=== PATIENT | male | born 1960 | race Caucasian/White ===

== ENCOUNTER 2017-09-27 12:20 | Observation (INO) | payer OTHER ==
[~2017-09-27] VITALS: Ht 180.3 cm; Wt 101.7 kg
[~2017-09-27 12:20] MED LIST: CLAR10CA3 PO; CLOM50CA PO; DEXTROSE 50% IN WATER 50 ML VIAL(D50) IV PUSH PRN; GLUCAGON 1 MG/ML VIAL OTHER PRN; OMEGCAP PO; SODIUM CHLORIDE 0.9% FLUSH 10 ML FLUSH IV FLUSH PRN; VITA1000 PO; [UNRECOGNIZED DRUG - OTHER] PO
[2017-09-27 14:00] VITALS: BP 149/96; PULSE 80; RESP 12; TEMP 97.9; O2SAT 96
--- NOTE | 2017-09-27 14:07 | HHI.HP ---
HPI Service [facility] Primary Care Physician Non-Staff Admission Diagnosis Diagnoses: Chief Complaint: Initiate, confusion. Travel History International Travel<30 Days: No Contact w/Intl Traveler <30 Da: No Traveled to Known Affected Are: No History of Present Illness Mr. Shah is a 57-year-old male with a history of migraine headache who presents to the emergency department in [place], [place] due to amnesia and confusion this morning. He woke up around 6 AM and had breakfast. Due to headache he came back to bed to sleep. At around 7:00 AM he went to the bathroom. Patient's not to the bathroom door to get some stuff from the bathroom. Minutes after he got out of the bathroom patient came back to his and stated "I don't know this house". He was somewhat agitated and upset and confused. He could not recall what the room next to their bedroom was. They have been living in the house for 11 years. He could not recognize the room where his daughter stayed before she got . 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 With this confusion and agitation he started crying. Per patient's he did not have any facial asymmetry, speech difficulty, focal weakness. At the time of this interview, patient appears to be at his baseline. He simply states that he does not recall what happened. He denies any changes in bowel or bladder habits. Denies any chest pain, shortness of breath, fever or chills. Review of Systems Except as stated in HPI: all other systems reviewed are Neg Past Family Social History Past Medical History Migraine headache Seasonal allergy Fatigue Colon cancer Past Surgical History Right-sided colon resection due to colon cancer Knee arthroscopy Cholecystectomy Tracheal surgery when he was a child Reported Medications Claritin Clomiphene Allergies: Coded Allergies: Sulfa (Sulfonamide Antibiotics) (Verified Allergy, Unknown, 09/27/17) Family History Mother - Breast cancer, Uterine cancer. Father - lung cancer Social History Patient denies using tobacco, alcohol, illicit drugs. Physical Exam Vital Signs Temperature 99.1F pulse 89 respiration 18 blood pressure 159/85 pulse oximetry 96% on room air. Physical Exam GENERAL: This is a well-nourished, well-developed patient, in no apparent distress. SKIN: No rashes, ecchymoses or lesions. Warm and dry. HEAD: Atraumatic. Normocephalic. No temporal or scalp tenderness. EYES: Pupils equal round and reactive. No injection or drainage. ENT: Nose without bleeding, purulent drainage or septal hematoma. Airway patent. NECK: Trachea midline. No lymphadenopathy. Supple, nontender, no meningeal signs. CARDIOVASCULAR: Regular rate and rhythm without murmurs, gallops, or rubs. No JVD. RESPIRATORY: Clear to auscultation. Breath sounds equal bilaterally. No wheezes , rales, or rhonchi. GASTROINTESTINAL: Abdomen soft, non-tender, nondistended. No guarding. MUSCULOSKELETAL: Extremities without clubbing, cyanosis, or edema. NEUROLOGICAL: Awake and alert. Cranial nerves II through XII intact. No focal neurological deficits. Normal speech. Laboratory WBC 7.0 hemoglobin 17.2 hematocrit 50.2 platelets 195 Sodium 141, potassium 4.0, chloride 111, carbon dioxide 23, BUN 17, creatinine 1.2, random glucose 136 Imaging Chest x-ray no acute disease Head CT normal examination Caprini VTE Risk Assessment Caprini VTE Risk Assessment: No/Low Risk (score <= 1) Caprini Risk Assessment Model Point Value = 1 Point Value = 2 Point Value = 3 Point Value = 5 Age 41-60 Minor surgery BMI > 25 kg/m2 Swollen legs Varicose veins or History of unexplained or recurrent spontaneous Oral contraceptives or hormone replacement Sepsis (< 1 month) Serious lung disease, including pneumonia (< 1 month) Abnormal pulmonary function Acute myocardial infarction Congestive heart failure (< 1 month) History of inflammatory bowel disease Medical patient at bed rest Age 61-74 Arthroscopic surgery Major open surgery (> 45 min) Laparoscopic surgery (> 45 min) Malignancy Confined to bed (> 72 hours) Immobilizing plaster cast Central venous access Age >= 75 History of VTE Family history of VTE Factor V Leiden Prothrombin [id number] Lupus anticoagulant Anticardiolipin antibodies Elevated serum homocysteine Heparin-induced thrombocytopenia Other congenital or acquired thrombophilia Stroke (< 1 month) Elective arthroplasty Hip, pelvis, or leg fracture Acute spinal cord injury (< 1 month) Prophylaxis Regimen Total Risk Factor Score Risk Level Prophylaxis Regimen 0-1 Low Early ambulation 2 Moderate Order ONE of the following: *Sequential Compression Device (SCD) *Heparin 5000 units SQ BID 3-4 Higher Order ONE of the following medications: *Heparin 5000 units SQ TID *Enoxaparin/Lovenox 40 mg SQ daily (WT < 150 kg, CrCl > 30 mL/min) *Enoxaparin/Lovenox 30 mg SQ daily (WT < 150 kg, CrCl > 10-29 mL/min) *Enoxaparin/Lovenox 30 mg SQ BID (WT < 150 kg, CrCl > 30 mL/min) AND/OR *Sequential Compression Device (SCD) 5 or more Highest Order ONE of the following medications: *Heparin 5000 units SQ TID (Preferred with Epidurals) *Enoxaparin/Lovenox 40 mg SQ daily (WT < 150 kg, CrCl > 30 mL/min) *Enoxaparin/Lovenox 30 mg SQ daily (WT < 150 kg, CrCl > 10-29 mL/min) *Enoxaparin/Lovenox 30 mg SQ BID (WT < 150 kg, CrCl > 30 mL/min) AND *Sequential Compression Device (SCD) Assessment and Plan Problem List: (1) Transient global amnesia ICD Code: G45.4 - Transient global amnesia (2) Erythrocytosis ICD Code: D75.1 - Secondary polycythemia (3) Migraine headache ICD Code: G43.909 - Migraine, unspecified, not intractable, without status migrainosus Assessment and Plan Mr. Littlejohn is a 57-year-old male with a history of migraine headache who presented to the emergency department due to confusion and amnesia this morning. He did not have any focal neurological deficits. - Transient global amnesia - Etiology unknown. However migraine headache and erythrocytosis could be contributing factors. - Symptoms currently resolved. - CT scan of the head was unremarkable. Chest x-ray was unremarkable. - We'll obtain MRI brain and MRA, carotid ultrasound. - Neurology consult pending. - Migraine headache - Patient reports no relief of symptoms on Imitrex, Topamax - He usually takes Fioricet when necessary - Start patient on Fioricet every 8 hours as needed. - If agreed by neurology we can probably put patient on propranolol 20 mg twice a day for migraine prophylaxis - Erythrocytosis Hgb 17.2, Hct 50.2. - Patient is on Clomiphene for low testosterone - Prior to starting this medication his hemoglobin was 16. - I have advised patient to get a hematology evaluation in the outpatient setting. - KENIA-2 mutation could be ordered in the outpatient setting to rule out polycythemia vera Full code. Ambulation. Lurdes Bowie DO Sep 27, 2017 2:07 pm
[2017-09-27] MEDS ORDERED: LORazepam 2 MG/ML VIAL IM ONE (14:15)
[2017-09-27] MEDS ORDERED: LORazepam 2 MG/ML VIAL IV PUSH ONE (14:30)
[2017-09-27] MEDS ORDERED: ACETAMIN 325 MG/BUTALBITAL 50 MG/CAFFEINE 40 MG TAB PO PRN (14:45)
[2017-09-27 16:00] VITALS: BP 153/96; PULSE 82; RESP 12; TEMP 97.1; O2SAT 95
[2017-09-27] MEDS ORDERED: NAPROXEN 375 MG TAB PO PRN (16:15)
--- NOTE | 2017-09-27 16:17 | RADRPT ---
EXAM DATE/TIME: 09/27/2017 14:40 [facility] COMPARISON: No previous studies available for comparison. INDICATIONS : Cephalgia. TIA. Episode of memory loss. MEDICAL HISTORY : None. SURGICAL HISTORY : Appendectomy. Cholecystectomy. Bilateral knee surgery. ENCOUNTER: Subsequent ACUITY: 1 day PAIN SCORE: 3/10 LOCATION: head. TECHNIQUE: Multiplanar, multisequence MRI of the brain was performed without contrast. FINDINGS: There is no restricted diffusion evident Minimal white matter changes are evident. There is no parenchymal hemorrhage, acute infarction or mass lesion Regarding the white matter changes are in the proximal regions bilaterally. There is no parenchymal hemorrhage Posterior fossa is unremarkable. CONCLUSION: Periventricular white matter changes, confined and more towards the parietal occipita l regions bilaterally Negative for acute infarct. Brandan Shen MD FACR on September 27, 2017 at 16:13 Board Certified Radiologist. This report was verified electronically.
--- NOTE | 2017-09-27 16:17 | RADRPT ---
EXAM DATE/TIME: 09/27/2017 14:40 [facility] COMPARISON: No previous studies available for comparison. INDICATIONS : Cephalgia. TIA. Episode of memory loss. MEDICAL HISTORY : None. SURGICAL HISTORY : Appendectomy. Cholecystectomy. Bilateral knee surgery. ENCOUNTER: Subsequent ACUITY: 1 day PAIN SCORE: 3/10 LOCATION: head. Please note a normal MRA of the brain does not entirely exclude the possibility of a small aneurysm, nor the possibility of distal intracranial vessel disease. TECHNIQUE: 3D time of flight MRA was performed. Source images, multiplanar STS MIP, and 3D volume MIP reconstru ctions were reviewed. FINDINGS: There is excellent visualization of the major intracranial arteries out to the second-order branch ve ssels. There is no evidence for aneurysm, vessel truncation or stenosis, and no evidence for vascula r malformation. CONCLUSION: Negative for major branch vessel occlusion. As artery is widely patent. Both vertebral arteries are patent. Brandan Shen MD FACR on September 27, 2017 at 16:15 Board Certified Radiologist. This report was verified electronically.
--- NOTE | 2017-09-27 16:30 | RADRPT ---
EXAM DATE/TIME: 09/27/2017 14:04 [facility] COMPARISON: No previous studies available for comparison. INDICATIONS : Transient ischemic attack. MEDICAL HISTORY : Transient ischemic attack. SURGICAL HISTORY : Appendectomy. Cholecystectomy. Bilateral knee surgery. ENCOUNTER: Initial ACUITY: 1 day PAIN SCORE: 0/10 LOCATION: Bilateral neck PEAK SYSTOLIC VELOCITIES (cm/sec): ICA/CCA RATIO: Right: 1.1 Left: 0.9 ICA: Right: 76 Left: 80 CCA: Right: 76 Left: 80 ECA: Right: 78 Left: 76 VERTEBRAL: Right: 53 antegrade Left: 51 antegrade Elevated flow velocities and ICA/CCA ratios have been found to correlate with increased degrees of vessel stenosis, calculated as percentage of diameter relative to a normal segment of distal ICA/CCA FINDINGS: RIGHT CAROTID: There is no evidence for a hemodynamically significant carotid stenosis. Minimal int imal hyperplasia is present with scattered calcific plaque. LEFT CAROTID: There is no evidence for a hemodynamically significant carotid stenosis. Minimal inti mal hyperplasia is present with scattered calcific plaque. VERTEBRAL ARTERIES: Flow is antegrade in both vertebral arteries. MISCELLANEOUS: There are no ancillary masses or adenopathy. CONCLUSION: Negative examination for a hemodynamically significant carotid stenosis. Brandan Shen MD FACR on September 27, 2017 at 16:27 Board Certified Radiologist. This report was verified electronically.
[2017-09-27 16:47] VITALS: PULSE 81
[2017-09-27 20:00] VITALS: BP 129/71; PULSE 98; RESP 20; TEMP 98.6; O2SAT 93
[2017-09-27] MEDS: PROPRANOLOL HCL 20 MG TAB PO SCH (20:40)
[2017-09-27] MEDS: SODIUM CHLORIDE 0.9% FLUSH 10 ML FLUSH IV FLUSH SCH (20:41)
[2017-09-27 23:00] VITALS: PULSE 61
[2017-09-28] VITALS: BP 113/70; PULSE 63; RESP 20; TEMP 97.8; O2SAT 93
[2017-09-28 04:00] VITALS: BP 129/70; PULSE 68; RESP 20; TEMP 97.3; O2SAT 96
[2017-09-28 07:00] VITALS: PULSE 79
[2017-09-28 08:00] VITALS: BP 138/85; PULSE 64; RESP 16; TEMP 97; O2SAT 96
--- NOTE | 2017-09-28 08:46 | MB ---
cc: ASUNCION PAYNE DATE OF CONSULTATION 09/27/2017 REASON FOR CONSULTATION Amnesia. Stroke versus TIA. HISTORY OF PRESENT ILLNESS Mr. Littlejohn is a 57-year-old male with past medical history of migraine headache who follows up with Dr. Atkinson outside neurologist at [place]. He presented to the [facility] with complaint of confusion and inability to remember events that happened this morning while at home with his . He woke up early in morning, had breakfast. He has had headache, then went to the bathroom. The patient's noticed that he said that he does not know his house. He was somehow agitated and upset. She clearly states that they have been living in the house for 11 years and he could not recognize the rooms in the house. The patient's and his children are at the bedside. Denied similar episode in the past. No recent change of medications or any medication added to his medication list. Denies drugs or alcohol. The patient states that he is under a lot of work stresses. He denies headache, double vision, blurred vision, speech difficulty, weakness, loss of consciousness during the encounter. The patient seems to be back to his baseline. However, the states that he is not as sharp as he is normally. The patient has been treated with Imitrex that did not help with his migraine. REVIEW OF SYSTEMS A 12-point review of systems is negative except for what is stated in the HPI. PAST MEDICAL HISTORY 1. Migraine headache. 2. Allergies. 3. Fatigue. 4. Colon cancer. PAST SURGICAL HISTORY 1. Right-sided colon resection due to colon cancer. 2. Knee arthroscopy. 3. Cholecystectomy. 4. Tracheal surgery when he was a child. MEDICATIONS 1. Claritin. 2. Clomiphene used for low testosterone levels. ALLERGIES SULFA. FAMILY HISTORY Mother with breast cancer, passed. Father from lung cancer. Son with stroke. They are not certain whether it is a venous or arterial stroke. SOCIAL HISTORY The patient denies using tobacco, alcohol or illicit drugs. PHYSICAL EXAMINATION GENERAL: Awake, alert, good historian, anxious, not in acute distress HEENT: Atraumatic, normocephalic. Intact hearing. Intact vision. NECK: Supple. No signs of meningeal irritation. No carotid bruit. CARDIOVASCULAR: Regular rate and rhythm. RESPIRATORY: Clear to auscultation. No wheezes. GASTROINTESTINAL: Soft abdomen. Nontender. MUSCULOSKELETAL: No cyanosis, clubbing or edema. NEUROLOGIC: Awake, alert, oriented to time, person and place. No dysarthria, no dysphagia. Cranial nerves II-XII are grossly intact. Motor and sensory exams are normal. 5/5 bilateral and symmetrical muscle strength in upper and lower extremity. Normal tone. No abnormal movement. Intact sensation to light touch, temperature throughout. Reflexes 2+ bilateral and symmetrical. Plantars are bilaterally downgoing. Mtreto-sm-xmyw is intact. PSYCHIATRY: Anxious, cooperative. Intact mood and behavior. LABORATORY DATA White blood cells 7, hemoglobin 17.2, hematocrit 50.2, platelets 195. Sodium 141 , potassium 4, chloride 111, BUN 17, creatinine 1.2, random glucose 136. IMAGING STUDIES - Brain MRI revealed periventricular white matter changes, confined and more towards the parietal occipital regions bilaterally. Negative for an acute infarct. - Carotid ultrasound - Negative examination for hemodynamically significant stenosis. - Head MRA - Negative for major branch vessel occlusion. Both vertebral arteries are patent. DIAGNOSTIC IMPRESSION - Chronic migraine headache. - TGA (transient global amnesia). PLAN 1. Neurologic exam is nonfocal. Neurologic investigation with no acute neurologic abnormality. 1. Migraine prevention. Start propranolol 10 mg twice daily. 2. Naprosyn 375 mg twice daily. 3. Tight control of blood pressure. 4. Follow-up with primary care physician for the polycythemia. 5. Discussed with Dr. Bowie the plan of care and the possible effect of clomiphene on this condition. 6. Follow up with Hematology for the polycythemia. 7. Follow up with outpatient neurology/outpatient neurologist, Dr. Atkinson, who is his primary neurologist. I discussed the case with Dr. Bowie. Thank you for the opportunity to participate in the care of your patient. Please call for questions. MD LOIS Russell/HUNTER /9:39 PM /8:17 AM KISHA
[2017-09-28] MEDS ORDERED: ASPIRIN EC 81 MG TABEC PO SCH (09:00)
[2017-09-28] MEDS ORDERED: ASPIRIN 325 MG TAB PO SCH (09:00)
[2017-09-28 09:45] LABS: HDL CHOLESTEROL 35.6 MG/DL (40.0-60.0)
[2017-09-28] MEDS: PROPRANOLOL HCL 20 MG TAB PO SCH (10:53)
[2017-09-28] MEDS: SODIUM CHLORIDE 0.9% FLUSH 10 ML FLUSH IV FLUSH SCH (10:54)
[2017-09-28] MEDS ORDERED: ECASA81 PO (11:02)
[2017-09-28] MEDS ORDERED: PROP20TA3 PO (11:02)
--- NOTE | 2017-09-28 11:03 | HHI.PR ---
Subjective Remarks Follow-up for transient global amnesia. Patient is currently doing well. Denies any acute concerns. Objective Vitals Vital Signs Date Time Temp Pulse Resp B/P (MAP) Pulse Ox O2 Delivery O2 Flow Rate FiO2 09/28/17 08:00 97.0 64 16 138/85 (102) 96 09/28/17 04:00 97.3 68 20 129/70 (89) 96 09/28/17 00:00 97.8 63 20 113/70 (84) 93 09/27/17 23:00 61 09/27/17 20:00 98.6 98 20 129/71 (90) 93 09/27/17 18:30 18 09/27/17 16:47 81 09/27/17 16:00 97.1 82 12 153/96 (115) 95 09/27/17 14:00 97.9 80 12 149/96 (113) 96 I/O 09/27/17 09/27/17 09/27/17 09/28/17 09/28/17 09/28/17 07:00 15:00 23:00 07:00 15:00 23:00 Intake Total 500 ml Balance 500 ml Intake Oral 500 ml # Voids 2 # Bowel Movements 0 Imaging Last Impressions Head Magnetic Resonance Angiography 09/27/17 0000 Signed Impressions: Service Date/Time: Wednesday, September 27, 2017 14:40 - CONCLUSION: Negative for major branch vessel occlusion. As artery is widely patent. Both vertebral arteries are patent. Brandan Shen MD FACR Carotid Artery Ultrasound 09/27/17 0000 Signed Impressions: Service Date/Time: Wednesday, September 27, 2017 14:04 - CONCLUSION: Negative examination for a hemodynamically significant carotid stenosis. Brandan Shen MD FACR Brain MRI 09/27/17 0000 Signed Impressions: Service Date/Time: Wednesday, September 27, 2017 14:40 - CONCLUSION: Periventricular white matter changes, confined and more towards the parietal occipital regions bilaterally Negative for acute infarct. Brandan Shen MD FACR Objective Remarks GENERAL: Alert, oriented 3, NAD. SKIN: Warm and dry. HEAD: Normocephalic. EYES: No scleral icterus. No injection or drainage. NECK: Supple, trachea midline. No JVD or lymphadenopathy. CARDIOVASCULAR: Regular rate and rhythm without murmurs, gallops, or rubs. RESPIRATORY: Breath sounds equal bilaterally. No accessory muscle use. GASTROINTESTINAL: Abdomen soft, non-tender, nondistended. MUSCULOSKELETAL: No cyanosis, or edema. BACK: Nontender without obvious deformity. No CVA tenderness. Procedures None A/P Problem List: (1) Transient global amnesia ICD Code: G45.4 - Transient global amnesia (2) Erythrocytosis ICD Code: D75.1 - Secondary polycythemia (3) Migraine headache ICD Code: G43.909 - Migraine, unspecified, not intractable, without status migrainosus Assessment and Plan Mr. Littlejohn is a 57-year-old male with a history of migraine headache who presented to the emergency department due to confusion and amnesia this morning. He did not have any focal neurological deficits. - Transient global amnesia - Etiology unknown. However migraine headache and erythrocytosis could be contributing factors. - Symptoms currently resolved. - CT scan of the head was unremarkable. Chest x-ray was unremarkable. - MRI brain and MRA, carotid ultrasound also unremarkable - Neurology recommended propranolol, naproxen for headache. - Migraine headache - propranolol 20 mg twice a day for migraine prophylaxis - Naproxen when necessary for headache - Erythrocytosis Hgb 17.2, Hct 50.2. - Patient is on Clomiphene for low testosterone - Prior to starting this medication his hemoglobin was 16. - I have advised patient to get a hematology evaluation in the outpatient setting. - KENIA-2 mutation could be ordered in the outpatient setting to rule out polycythemia vera - Will discontinue clomiphene on discharge Full code. Ambulation. Discharge patient to home Condition on discharge: Improved Regular Diet as tolerated Ad Sofy activity Rx written: - Propranolol 20mg BID - Aspirin 81mg Qday. Follow-up with primary care physician within two weeks. Hematology evaluation for erythrocytosis in two weeks. Lurdes Bowie DO Sep 28, 2017 11:03 am
[2017-09-28 14:41] LABS: HEMOGLOBIN A1a 0.7 %; HEMOGLOBIN F 0.7 %; HEMOGLOBIN LA1C 1.6 %; HEMOGLOBIN P3 3.3 %
== END 2017-09-28 12:18 | disposition home or self-care (01) ==
LOC: NEDDLT 12:20 → PH3A 12:52
PROVIDERS: ADMIT Hospitalist; ATTEND Hospitalist
DX: G45.4 Transient global amnesia (principal); D75.1 Secondary polycythemia; G43.909 Migraine, unspecified, not intractable, without status migrainosus; J30.2 Other seasonal allergic rhinitis; Z85.038 Personal history of other malignant neoplasm of large intestine
CPT/HCPCS: 70450; 70544; 70551; 71010; 80048; 80061; 82550; 82948; 83036; 83735; 84484; 85025; 85610; 85730; 93005; 93880; 96372; 96374; 97162; 99285; G0378; G8987; G8988; J2060; J3030